=== PATIENT | male | born 1960 | race African-American/Black ===

== ENCOUNTER 2017-06-12 11:56 | Inpatient (IN) | payer SELFPAY ==
[2017-06-12] VITALS (10 sets, daily range): BP systolic 131–175; BP diastolic 68–95
[~2017-06-12] VITALS: Ht 182.9 cm; Wt 80.0 kg
[~2017-06-12 11:56] MED LIST: NAPROSYN500 MG PO
[2017-06-12 14:05] LABS: HEMATOCRIT 38.4 % (39.0-50.0); HEMOGLOBIN 12.5 g/dl (14.0-18.0); IMMATURE GRANULOCYTES 0.2 % (0.0-1.0); MEAN CELL VOLUME 75.6 fL CALC (80.0-100.0); MEAN CORPUSCULAR HGB 24.6 pG CALC (26.0-32.0); MEAN CORPUSCULAR HGB CONC 32.6 g/L CALC (32.0-36.0); NEUT# 2.85 thou/uL (1.82-7.42); RED BLOOD COUNT 5.08 mill/uL (4.70-6.10); RED CELL DISTRI WIDTH 14.7 % (11.5-15.5)
[2017-06-12 14:25] LABS: PROTHROMBIN TIME 10.6 SECONDS (9.0-12.5)
[2017-06-12 14:36] LABS: ALBUMIN 4.6 g/dL (3.2-5.0); ALKALINE PHOSPHATASE 60 u/l (38-126); ANION GAP 17 (6-22 (CALC)); BILIRUBIN, TOTAL 0.5 mg/dL (0.0-1.4); BUN 11 mg/dL (9-20); BUN/CREATININE RATIO 12 (12-20 (CALC)); CALCIUM 9.5 mg/dL (8.4-10.2); CARBON DIOXIDE 21 mmol/l (22-30); CHLORIDE 106 mmol/l (95-108); CREATININE 0.9 mg/dL (0.7-1.3); GFR > 60 ML/MIN (>=60 (CALC)); GFR FOR AFR.AMER. > 60 ML/MIN (>=60 (CALC)); GLUCOSE 84 mg/dL (75-110); POTASSIUM 4.5 mmol/l (3.5-5.1); SGOT/AST 31 u/l (17-59); SGPT/ALT 50 u/l (21-72); SODIUM 139 mmol/l (137-146); TOTAL PROTEIN 7.7 g/dL (6.3-8.2)
[2017-06-13] VITALS (7 sets, daily range): BP systolic 121–150; BP diastolic 68–89
[2017-06-13 02:49] LABS: URINE BILIRUBIN - DIPSTICK NEGATIVE (NEGATIVE); URINE BLOOD DIPSTICK NEGATIVE (NEGATIVE); URINE CLARITY SLIGHT CLOUDY; URINE COLOR YELLOW; URINE GLUCOSE - DIPSTICK NEGATIVE (NEGATIVE); URINE KETONE NEGATIVE (NEGATIVE); URINE LEUK ESTERASE NEGATIVE (Negative); URINE NITRITE - DIPSTICK NEGATIVE (Negative); URINE PH 5.5 (4.5-8.0); URINE PROTEIN - DIPSTICK NEGATIVE (NEG-TRACE); URINE SPECIFIC GRAVITY 1.015; URINE UROBILINOGEN - DIPSTICK 0.2 E.U./dL (0.2)
[2017-06-13 04:49] LABS: HEMATOCRIT 36.2 % (39.0-50.0); HEMOGLOBIN 11.8 g/dl (14.0-18.0); MEAN CELL VOLUME 75.7 fL CALC (80.0-100.0); MEAN CORPUSCULAR HGB 24.7 pG CALC (26.0-32.0); MEAN CORPUSCULAR HGB CONC 32.6 g/L CALC (32.0-36.0); RED BLOOD COUNT 4.78 mill/uL (4.70-6.10); RED CELL DISTRI WIDTH 14.6 % (11.5-15.5)
[2017-06-13 05:30] LABS: ANION GAP 11 (6-22 (CALC)); BUN 8 mg/dL (9-20); BUN/CREATININE RATIO 9 (12-20 (CALC)); CALCIUM 8.9 mg/dL (8.4-10.2); CARBON DIOXIDE 26 mmol/l (22-30); CHLORIDE 104 mmol/l (95-108); CREATININE 0.9 mg/dL (0.7-1.3); GFR > 60 ML/MIN (>=60 (CALC)); GFR FOR AFR.AMER. > 60 ML/MIN (>=60 (CALC)); GLUCOSE 95 mg/dL (75-110); MAGNESIUM 1.7 mg/dL (1.6-2.3); POTASSIUM 4.3 mmol/l (3.5-5.1); SODIUM 137 mmol/l (137-146)
[2017-06-14 04:10] VITALS: BP 143/85
[2017-06-14 07:46] VITALS: BP 133/78
[2017-06-14 10:14] LABS: CHOLESTEROL HDL RATIO 2.9 (<4.4 (CALC))
[2017-06-14 15:26] VITALS: BP 135/78
[2017-06-14 18:50] VITALS: BP 149/84
[2017-06-15 04:00] VITALS: BP 128/75
[2017-06-15 08:51] VITALS: BP 135/79
[2017-06-15 10:12] LABS: HEMATOCRIT 37.3 % (39.0-50.0); HEMOGLOBIN 12.2 g/dl (14.0-18.0); IMMATURE GRANULOCYTES 0.3 % (0.0-1.0); MEAN CELL VOLUME 75.5 fL CALC (80.0-100.0); MEAN CORPUSCULAR HGB 24.7 pG CALC (26.0-32.0); MEAN CORPUSCULAR HGB CONC 32.7 g/L CALC (32.0-36.0); NEUT# 3.76 thou/uL (1.82-7.42); RED BLOOD COUNT 4.94 mill/uL (4.70-6.10); RED CELL DISTRI WIDTH 14.2 % (11.5-15.5)
[2017-06-15 10:28] LABS: ANION GAP 13 (6-22 (CALC)); BUN 9 mg/dL (9-20); BUN/CREATININE RATIO 9 (12-20 (CALC)); CALCIUM 9.4 mg/dL (8.4-10.2); CARBON DIOXIDE 27 mmol/l (22-30); CHLORIDE 103 mmol/l (95-108); GFR > 60 ML/MIN (>=60 (CALC)); GFR FOR AFR.AMER. > 60 ML/MIN (>=60 (CALC)); GLUCOSE 146 mg/dL (75-110); POTASSIUM 3.8 mmol/l (3.5-5.1); SODIUM 139 mmol/l (137-146)
[2017-06-15 15:18] VITALS: BP 122/67
[2017-06-15 19:07] VITALS: BP 145/76
[2017-06-16 04:10] VITALS: BP 150/80
[2017-06-16 07:49] VITALS: BP 114/51
[2017-06-16 15:25] VITALS: BP 117/65
[2017-06-16 19:45] VITALS: BP 137/76
[2017-06-17] VITALS (7 sets, daily range): BP systolic 117–131; BP diastolic 65–75
[2017-06-17 05:30] LABS: HEMATOCRIT 36.9 % (39.0-50.0); HEMOGLOBIN 11.8 g/dl (14.0-18.0); MEAN CELL VOLUME 76.7 fL CALC (80.0-100.0); MEAN CORPUSCULAR HGB 24.5 pG CALC (26.0-32.0); RED BLOOD COUNT 4.81 mill/uL (4.70-6.10); RED CELL DISTRI WIDTH 14.2 % (11.5-15.5)
[2017-06-17 05:49] LABS: ANION GAP 13 (6-22 (CALC)); BUN 16 mg/dL (9-20); BUN/CREATININE RATIO 18 (12-20 (CALC)); CALCIUM 9.2 mg/dL (8.4-10.2); CARBON DIOXIDE 28 mmol/l (22-30); CHLORIDE 105 mmol/l (95-108); CREATININE 0.9 mg/dL (0.7-1.3); GFR > 60 ML/MIN (>=60 (CALC)); GFR FOR AFR.AMER. > 60 ML/MIN (>=60 (CALC)); GLUCOSE 101 mg/dL (75-110); POTASSIUM 4.6 mmol/l (3.5-5.1); SODIUM 141 mmol/l (137-146)
[2017-06-17] MEDS ORDERED: ASPIRIN CHEWABL81 MG PO (11:37)
[2017-06-17] MEDS ORDERED: AMLODIPINE BESYL5 MG PO (11:37)
[2017-06-17] MEDS ORDERED: PANTOPRAZOLE SO40 M1 PO (11:37)
== END 2017-06-17 16:20 | disposition home health service (06) | DRG 517 ==
LOC: ED 11:56 → ED-I 13:46 → ED 14:07 → MS2 14:08
PROVIDERS: Emergency Medicine; Internal Medicine; Nurse Practitioner Family; ADMIT Internal Medicine; ATTEND Internal Medicine
PROC: 0QC Lower Bones, Extirpation (ICD-10-PCS; principal; 2017-06-12)
PROC: 0QCQ0ZZ Extirpation of Matter from Right Toe Phalanx, Open Approach (ICD-10-PCS; 2017-06-12)
PROC: 3E10X8Z Irrigation of Skin and Mucous Membranes using Irrigating Substance (ICD-10-PCS; 2017-06-12)
PROC: 0HTRXZZ Resection of Toe Nail, External Approach (ICD-10-PCS; 2017-06-12)
PROC: 0HQRXZZ Repair Toe Nail, External Approach (ICD-10-PCS; 2017-06-17)
PROC: 0HQRXZZ Repair Toe Nail, External Approach (ICD-10-PCS; 2017-06-17)
PROC: 0HQMXZZ Repair Right Foot Skin, External Approach (ICD-10-PCS; 2017-06-17)
DX: S92.422B Displaced fracture of distal phalanx of left great toe, initial encounter for open fracture (principal); I10 Essential (primary) hypertension; S91.111A Laceration without foreign body of right great toe without damage to nail, initial encounter; F10.20 Alcohol dependence, uncomplicated; D63.8 Anemia in other chronic diseases classified elsewhere; S92.531B Displaced fracture of distal phalanx of right lesser toe(s), initial encounter for open fracture; S91.115A Laceration without foreign body of left lesser toe(s) without damage to nail, initial encounter; F17.210 Nicotine dependence, cigarettes, uncomplicated; F12.90 Cannabis use, unspecified, uncomplicated; R19.5 Other fecal abnormalities; K59.03 Drug induced constipation; T40.605A Adverse effect of unspecified narcotics, initial encounter; W28.XXXA Contact with powered lawn mower, initial encounter; Y92.239 Unspecified place in hospital as the place of occurrence of the external cause; Y93.H9 Activity, other involving exterior property and land maintenance, building and construction; Y92.007 Garden or yard of unspecified non-institutional (private) residence as the place of occurrence of the external cause
CPT/HCPCS: G0328; J1650

== ENCOUNTER 2017-06-24 10:09 | Emergency (ER) | payer SELFPAY ==
[~2017-06-24] VITALS: Ht 182.9 cm; Wt 80.0 kg
[~2017-06-24 10:09] MED LIST changes: +AMLODIPINE BESYL5 MG PO; +ASPIRIN CHEWABL81 MG PO; +PANTOPRAZOLE SO40 M1 PO
[2017-06-24 11:10] VITALS: BP 150/82
== END 2017-06-24 11:10 | disposition home or self-care (01) | DRG 950 ==
LOC: ED 10:09
DX: S91.115D Laceration without foreign body of left lesser toe(s) without damage to nail, subsequent encounter (principal); S92.531D Displaced fracture of distal phalanx of right lesser toe(s), subsequent encounter for fracture with routine healing; S91.111D Laceration without foreign body of right great toe without damage to nail, subsequent encounter

== ENCOUNTER 2020-01-31 | Emergency (ER) | payer SELFPAY ==
[2020-01-31 12:38] LABS: HEMATOCRIT 33.7 % (39.0-50.0); HEMOGLOBIN 11.9 g/dl (14.0-18.0); IMMATURE GRANULOCYTES 1.4 % (0.0-5.0); MEAN CELL VOLUME 66.1 fL CALC (80.0-100.0); MEAN CORPUSCULAR HGB 23.3 pG CALC (26.0-32.0); MEAN CORPUSCULAR HGB CONC 35.3 g/dL CAL (32.0-36.0); NEUT# 13.1 thou/uL (1.82-7.42); RED BLOOD COUNT 5.1 mill/uL (4.70-6.10); RED CELL DISTRI WIDTH 22.8 % (11.5-15.5)
[2020-01-31 12:52] LABS: ALBUMIN 3.7 g/dL (3.2-5.0); ALKALINE PHOSPHATASE 682 u/l (38-126); BUN 77 mg/dL (9-20); CARBON DIOXIDE 21 mmol/l (22-30); CHLORIDE 91 mmol/l (95-108); SGOT/AST 463 u/l (17-59); SODIUM 131 mmol/l (137-146); TOTAL PROTEIN 8.8 g/dL (6.3-8.2)
[2020-01-31 12:55] LABS: ACT PARTIAL THROMBO TIME 40.8 SECONDS (20.0-32.5)
[2020-01-31 12:56] LABS: INTERNATIONAL NORMALIZED RATIO 1.8 RATIO (0.7-1.3); PROTHROMBIN TIME 17.9 SECONDS (9.0-12.5)
[2020-01-31 13:03] LABS: ANION GAP 23 (6-22 (CALC)); BILIRUBIN, TOTAL 34.5 mg/dL (0.0-1.4); BUN/CREATININE RATIO 14 (12-20 (CALC)); CREATININE 5.5 mg/dL (0.7-1.3); GFR 11 ML/MIN (>=60 (CALC)); GFR FOR AFR.AMER. 13 ML/MIN (>=60 (CALC)); POTASSIUM 4.3 mmol/l (3.5-5.1)
== END 2020-01-31 18:55 | DRG 436 ==
PROVIDERS: Emergency Medicine
DX: C22.8 Malignant neoplasm of liver, primary, unspecified as to type (principal); C79.51 Secondary malignant neoplasm of bone; N17.9 Acute kidney failure, unspecified; R17 Unspecified jaundice; F17.200 Nicotine dependence, unspecified, uncomplicated